=== PATIENT | female | born 1985 | race Hispanic/Latino ===

== ENCOUNTER 2016-08-31 00:28 | Emergency (ER) | payer SELFPAY ==
[2016-08-31] MEDS ORDERED: NACL 0.9% 1000 ML 1,000 ML ONE (02:08)
[2016-08-31] MEDS ORDERED: ATIVAN ONE (02:08)
[2016-08-31] MEDS ORDERED: ATIVAN IV ONE (02:40)
[2016-08-31] MEDS ORDERED: NACL 0.9% 1000 ML IV ONE (02:42)
[2016-08-31] MEDS ORDERED: KEPPRA 1,000 MG/NS 0.75% 100ML 100 ML IV ONE (03:30)
--- NOTE | 2016-08-31 03:48 | Emergency Department Report ---
HPI - General Chief Complaint: Seizure Time Seen by Provider: 08/31/16 03:09 - HPI HPI: The patient is a 31-year-old female with a history of epilepsy, who presents for evaluation of seizure. The patient'boyfriend reports that he witnessed the patient experiencing twitching of the extremities 5-6 times between 6 PM this evening and midnight. He states that each episode lasted for approximately 1 minute, was constant, severe, and self resolved. The patient states that she does not recall the episodes. The boyfriend states that she was confused after each episode. The patient denies fever, head injury, headache, neck pain, vision or hearing changes, smell or taste changes, paresthesias, facial drooping , slurred speech, urine or bowel incontinence or retention, or other focal neurological deficit. ED Past Medical Hx - Past Medical History Hx Seizures: Yes - Surgical History Past Surgical History?: No - Social History Smoking Status: Current Every Day Smoker Substance Use Type: None - Medications Home Medications: Home Medications Medication Instructions Recorded Confirmed Last Taken Type levETIRAcetam [Keppra TAB] 500 mg PO BID #60 tablet 08/31/16 Unknown Rx ED Review of Systems ROS: Stated complaint: SEIZURE Other details as noted in HPI Constitutional: denies: fever ENT: denies: throat or neck pain Respiratory: denies: cough, shortness of breath Cardiovascular: denies: chest pain Endocrine: denies unexplained weight loss or gain Gastrointestinal: denies: abdominal pain, nausea Genitourinary: denies: dysuria Musculoskeletal: denies: leg swelling Skin: denies: rash Neurological: denies: headache; reports seizure Hematological/Lymphatic: denies: easy bleeding or easy bruising Psych: denies sadness or hopelessness Physical Exam - Physical Exam Vital Signs: Vital Signs 08/31/16 08/31/16 01:29 02:32 Temperature 98.1 F Pulse Rate 60 Respiratory 18 18 Rate Blood Pressure 90/41 O2 Sat by Pulse 99 99 Oximetry Physical Exam: General: well-nourished, well-developed, patient smells of tobacco Head: Normocephalic, atraumatic Eyes: normal sclera, EOMI, PERRL ENT: Mucous membranes are pale and dry Neck: No neck stiffness, no cervical adenopathy Respiratory: Breath sounds equal bilaterally, no wheezing, rales, or rhonchi Cardio: S1 and S2 present, no murmurs, rubs, gallops, capillary refill is delayed Abdomen: Normoactive bowel sounds, soft abdomen, no rigidity, no guarding or rebound tenderness Musc: No pitting edema Skin: No rash Neuro: Alert oriented 3, no facial drooping, normal speech, no sensation or motor deficit in the arms or legs, reflexes 2+ symmetric on DTR testing, no coordination deficit with finger to nose testing, no obvious gross neuro deficits Psych: Normal affect ED Course Vital Signs 08/31/16 08/31/16 01:29 02:32 Temperature 98.1 F Pulse Rate 60 Respiratory 18 18 Rate Blood Pressure 90/41 O2 Sat by Pulse 99 99 Oximetry ED Medical Decision Making - Medical Decision Making The patient was seen and examined by myself. The patient is placed on a bus monitor and continuous pulse ox. On initial evaluation, the patient was found to be in no distress. Evaluation orders were placed. The patient given 1 L normal saline fluid bolus for dehydration and 1 g of IV Keppra for treatment of seizure. Lab results are unremarkable. The patient is observed in the emergency department for greater than 2 hours without seizure-like activity. The patient was reevaluated and reported that she felt back to her normal baseline. The patient is stable for discharge with outpatient follow-up. The patient is given follow-up and return instructions. The patient expressed understanding and agreed with the plan. She is given a prescription for Keppra. The patient is discharged in stable condition. Critical care attestation.: If time is entered above; I have spent that time in minutes in the direct care of this critically ill patient, excluding procedure time. ED Disposition Clinical Impression: Dehydration Epilepsy Qualifiers: Epilepsy type: generalized idiopathic Intractability: not intractable Disposition: DISCHARGED TO HOME OR SELFCARE Is pt being admited?: No Does the pt Need Aspirin: No Condition: Stable Instructions: Epilepsy (ED), Dehydration (ED) Prescriptions: levETIRAcetam [Keppra TAB] 500 mg PO BID #60 tablet Referrals: PRIMARY CARE, [Primary Care Provider] - 3-5 Days Time of Disposition: 03:50
[2016-08-31 04:07] LABS: Basophils % (Auto) 0.1 % (0.0-1.8); Hematocrit 40.3 % (30.3-42.9); Hemoglobin 13.6 gm/dl (10.1-14.3); Mean Corpuscular HGB Conc 34 % (30-34); Mean Corpuscular Hemoglobin 31 pg (28-32); Mean Corpuscular Volume 90 fl (79-97); Platelet Count 130 K/mm3 (140-440); Red Blood Count 4.47 M/mm3 (3.65-5.03); Red Cell Distribution Width 14.1 % (13.2-15.2); White Blood Count 16.7 K/mm3 (4.5-11.0)
[2016-08-31] MEDS ORDERED: ZOFRAN ODT ONE (05:00)
[2016-08-31 05:14] LABS: Blood Urea Nitrogen 12 mg/dL (7-17); Calcium 8.5 mg/dL (8.4-10.2); Carbon Dioxide 18 mmol/L (22-30); Chloride 103.5 mmol/L (98-107); Glucose 106 mg/dL (65-100); Potassium 4.2 mmol/L (3.6-5.0); Sodium 140 mmol/L (137-145)
[2016-08-31 05:15] LABS: Anion Gap 23 mmol/L
[2016-08-31 07:16] VITALS: BP 105/65
[2016-08-31] MEDS ORDERED: ZOFRAN PO ONE (07:30)
== END 2016-08-31 07:18 | disposition home or self-care (01) ==
LOC: ED 00:28
DX: G40.909 Epilepsy, unspecified, not intractable, without status epilepticus (principal); E86.0 Dehydration; F17.200 Nicotine dependence, unspecified, uncomplicated
CPT/HCPCS: 36415; 80048; 84703; 85025; 96361; 96365; 96375; 99284; G0480; J1953; J2060; J7030; 80320; Q0162

== ENCOUNTER 2017-05-02 04:36 | Emergency (ER) | payer OTHER ==
[2017-05-02 05:32] LABS: Basophils % (Auto) 0.4 % (0.0-1.8); Eosinophils % (Auto) 0.7 % (0.0-4.3); Hematocrit 43.3 % (30.3-42.9); Hemoglobin 15.3 gm/dl (10.1-14.3); Mean Corpuscular HGB Conc 35 % (30-34); Mean Corpuscular Hemoglobin 32 pg (28-32); Mean Corpuscular Volume 89 fl (79-97); Platelet Count 146 K/mm3 (140-440); Red Blood Count 4.86 M/mm3 (3.65-5.03); Red Cell Distribution Width 13.3 % (13.2-15.2); White Blood Count 8.1 K/mm3 (4.5-11.0)
[2017-05-02 05:57] LABS: Anion Gap 20 mmol/L; BUN/Creatinine Ratio 15.71; Blood Urea Nitrogen 11 mg/dL (7-17); Calcium 9.8 mg/dL (8.4-10.2); Carbon Dioxide 24 mmol/L (22-30); Chloride 98.7 mmol/L (98-107); Glucose 94 mg/dL (65-100); Sodium 140 mmol/L (137-145)
[2017-05-02 06:01] LABS: Potassium 2.8 mmol/L (3.6-5.0)
[2017-05-02] MEDS ORDERED: K-DUR PO ONE (07:23)
[2017-05-02] MEDS ORDERED: NACL 0.9% 1000 ML 1,000 ML IV ONE (07:43)
--- NOTE | 2017-05-02 07:45 | Cat Scan Report ---
FINAL REPORT EXAM: CT HEAD/BRAIN W/O CONTRAST. HISTORY: Headache. TECHNIQUE: Unenhanced axial CT images of the brain were obtained. No prior studies are available for comparison. FINDINGS: There is streak artifact at the skullbase related to patient's earrings. The cortical sulci and ventricles are within normal limits for patient's age. The florence-white differentiation is maintained. There is no extra-axial fluid collection, mass, mass effect, midline shift, hydrocephalus, or acute intracranial hemorrhage. The visualized paranasal sinuses and mastoid air cells are clear. There is no skull fracture or other osseous abnormality. The visualized orbits and globes are grossly unremarkable. IMPRESSION: No acute intracranial abnormality.
[2017-05-02] MEDS ORDERED: KEPPRA 1,000 MG/NS 0.75% 100ML 1,000 MG/100 ML BAG IV ONE (08:41)
--- NOTE | 2017-05-02 09:58 | Emergency Department Report ---
HPI - General Chief Complaint: Seizure Time Seen by Provider: 05/02/17 07:43 - HPI HPI: The patient is a 32-year-old female with a history of epilepsy who presents for evaluation of seizure. The patient reports expressing a seizure 4 days ago. She complains of some mild intermittent dizziness since her seizure, exacerbated with standing or ambulation, improved with rest and lying flat. The patient denies fever, head injury, headache, neck pain, neck stiffness, vision or hearing changes, smell or taste changes, paresthesias, facial drooping, slurred speech, urine or bowel incontinence or retention, or other focal neurological deficit. ED Past Medical Hx - Past Medical History Hx Seizures: Yes - Surgical History Past Surgical History?: No - Social History Smoking Status: Current Every Day Smoker Substance Use Type: None - Medications Home Medications: Home Medications Medication Instructions Recorded Confirmed Last Taken Type Potassium Chloride [K-Dur] 20 meq PO QDAY #7 tab 05/02/17 Unknown Rx levETIRAcetam [Keppra TAB] 500 mg PO BID #60 tablet 05/02/17 Unknown Rx ED Review of Systems ROS: Stated complaint: SEIZURE ACTIVITY Other details as noted in HPI Constitutional: denies: fever ENT: denies: throat or neck pain Respiratory: denies: cough, shortness of breath Cardiovascular: denies: chest pain Endocrine: denies unexplained weight loss or gain Gastrointestinal: denies: abdominal pain, nausea Genitourinary: denies: dysuria Musculoskeletal: denies: leg swelling Skin: denies: rash Neurological: reports seizure and dizziness denies: headache Hematological/Lymphatic: denies: easy bleeding or easy bruising Psych: denies sadness or hopelessness Physical Exam - Physical Exam Vital Signs: Vital Signs 05/02/17 05/02/17 04:52 08:30 Temperature 97.7 F Pulse Rate 61 Respiratory 20 18 Rate Blood Pressure 119/79 Blood Pressure 119/79 [Left] O2 Sat by Pulse 98 Oximetry Physical Exam: General: well-nourished, well-developed, no acute distress Head: Normocephalic, atraumatic Eyes: normal sclera ENT: Mucous membranes are pale and dry Neck: No neck stiffness, no cervical adenopathy Respiratory: Breath sounds equal bilaterally, no wheezing, rales, or rhonchi Cardio: S1 and S2 present, no murmurs, rubs, gallops, capillary refill is delayed Abdomen: Normoactive bowel sounds, soft abdomen, no rigidity, no guarding or rebound tenderness Musc: No pitting edema Skin: No rash Neuro: alert oriented x4, normal cognition, speech normal, PERRL, EOM intact, no facial drooping, no uvula or tongue deviation on protrusion, no deficit with rotation of neck or shoulder shrug, no obvious gross motor deficit in the upper or lower extremities with flexion or extension at the shoulder, elbow, wrist, hip, knee, or ankle bilaterally, no obvious gross sensation deficit to crude touch or 2 pt discrimination, 2+ symmetric reflexes on DTR testing, no dysmetria , dysdiadochokinesia, no coordination deficit with [id number] or heel-to- wilder testing, romberg negative, patient able to to ambulate without abnormal gait Psych: Normal affect ED Course Vital Signs 05/02/17 05/02/17 04:52 08:30 Temperature 97.7 F Pulse Rate 61 Respiratory 20 18 Rate Blood Pressure 119/79 Blood Pressure 119/79 [Left] O2 Sat by Pulse 98 Oximetry ED Medical Decision Making - Lab Data Result diagrams: 05/02/17 05:09 05/02/17 05:09 - Medical Decision Making The patient was seen and examined by myself. The patient is placed on a hall monitor and continuous pulse ox. On initial evaluation, the patient was found to be in no distress. Evaluation orders were placed. Given 1 L normal saline fluid bolus for treatment of dehydration. Given keppra for treatment of seizure. CT scan the head is negative for acute intracranial disease process. Lab results were non-concerning including WBC, hemoglobin, hematocrit, electrolytes, renal function. The patient was reevaluated and reported that their symptoms were markedly improved. The patient is stable for discharge with outpatient follow-up. The patient is given follow-up and return instructions. The patient expressed understanding and agreed with the plan. The patient is discharged in stable condition. Critical care attestation.: If time is entered above; I have spent that time in minutes in the direct care of this critically ill patient, excluding procedure time. ED Disposition Clinical Impression: Seizure disorder, Dehydration, mild, Acute hypokalemia Disposition: - TO HOME OR SELFCARE Is pt being admited?: No Does the pt Need Aspirin: No Condition: Stable Instructions: Hypokalemia (ED), Epilepsy (ED) Prescriptions: levETIRAcetam [Keppra TAB] 500 mg PO BID #60 tablet Potassium Chloride [K-Dur] 20 meq PO QDAY #7 tab Referrals: PRIMARY CARE, [Primary Care Provider] - 3-5 Days Time of Disposition: 09:58
[2017-05-02 10:41] VITALS: BP 119/72
== END 2017-05-02 10:41 | disposition home or self-care (01) ==
LOC: ED 04:36
DX: G40.909 Epilepsy, unspecified, not intractable, without status epilepticus (principal); E86.0 Dehydration; E87.6 Hypokalemia; F17.210 Nicotine dependence, cigarettes, uncomplicated
CPT/HCPCS: 36415; 70450; 80048; 84703; 85025; 96365; 99285; J1953; J7030